=== PATIENT | female | born 1995 | race Two or more races ===

== ENCOUNTER 2020-09-14 21:27 | Emergency (ER) | payer BC ==
[2020-09-14] MEDS ORDERED: Ketorolac 60 MG/2 ML SDV IM ONE (22:34)
--- NOTE | 2020-09-14 22:35 | EDM.PDOC ---
ED HPI GENERAL MEDICAL PROBLEM - General Chief Complaint: Abdominal Pain Stated Complaint: MEDICAL Time Seen by Provider: 09/14/20 22:20 Source of Information: Reports: Patient History Limitations: Reports: No Limitations - History of Present Illness INITIAL COMMENTS - FREE TEXT/NARRATIVE: 24-year-old female who vomited several times today, and became concerned that she may have overdosed on Tylenol. She has had a persistent migraine and generalized body aches over the past several days and has been taking Tylenol on a regular basis. No fevers or chills, no diarrhea. No significant abdominal pain. No urinary symptoms. Onset: Unknown/Unsure Associated Symptoms: Reports: Loss of Appetite, Malaise, Nausea/Vomiting. 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 Musculoskeletal History: Reports: Fracture, Other (See Below) Other Musculoskeletal History: bilateral ankle fx Neurological History: Reports: Concussion, Headaches, Chronic Psychiatric History: Reports: Anxiety, Depression - Infectious Disease History Infectious Disease History: Reports: Chicken Pox, Novel Coronavirus - Past Surgical History Female Surgical History: Reports: Other (See Below) Other Female Surgeries/Procedures: 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 Denies: Fever, Chills HEENT: Denies: Throat Pain Respiratory: Denies: Shortness of Breath, Cough Cardiovascular: Denies: Chest Pain GI/Abdominal: Reports: Abdominal Pain, Nausea, Vomiting. Denies: Constipation, Diarrhea : Reports: No Symptoms Neurological: Reports: Headache ED EXAM, GI/ABD - Physical Exam Exam: See Below Exam Limited By: No Limitations General Appearance: Alert, No Apparent Distress Eyes: Bilateral: Normal Appearance Head: Atraumatic Respiratory/Chest: No Respiratory Distress, Lungs Clear Cardiovascular: Regular Rate, Rhythm GI/Abdominal Exam: Normal Bowel Sounds, Soft, Other (No focal tenderness or rebound) Neurological: Alert, Oriented Course - Vital Signs Last Recorded V/S: Last Vital Signs Temp 97.8 F 09/14/20 22:12 Pulse 101 H 09/14/20 22:12 Resp 16 09/14/20 22:12 BP 145/92 H 09/14/20 22:12 Pulse Ox 99 09/14/20 22:12 - Orders/Labs/Meds Meds: Medications Discontinued Medications Generic Name Dose Route Start Last Admin Trade Name Derrickq PRN Reason Stop Dose Admin Ketorolac Tromethamine 60 mg 09/14/20 22:34 09/14/20 22:51 Toradol IM 09/14/20 22:35 60 mg ONETIME ONE Administration - Re-Assessments/Exams Free Text/Narrative Re-Assessment/Exam: 09/14/20 22:47 Reassured her that she does not appear to be in a state of acetaminophen poisoning, its more likely mild viral syndrome. She was given 60 mg of IM Toradol for her persistent headache, and 5 doses of Zofran to use over the next 24 hours. She can return tomorrow if worsening for further work-up if needed. Departure - Departure Time of Disposition: 23:05 Disposition: Home, Self-Care 01 Clinical Impression: Nausea & vomiting Qualifiers: Vomiting type: unspecified Vomiting Intractability: non-intractable Qualified Code(s): R11.2 - Nausea with vomiting, unspecified Headache Qualifiers: Headache type: unspecified Headache chronicity pattern: acute headache Intractability: not intractable Qualified Code(s): R51.9 - Headache, unspecified - Discharge Information Instructions: Nausea and Vomiting, Adult Referrals: Preeti Schumacher CNM [Primary Care Provider] - Forms: ED Department Discharge Care Plan Goals: Rest tonight, stay hydrated and try naproxen or ibuprofen if needed tomorrow for headache or muscle pain. Return in 1 to 2 days if not improving satisfactorily. Avoid Tylenol for 24 hours. Use Zofran under your tongue every 6-8 hours if na useated. Sepsis Event Note (ED) - Evaluation Sepsis Screening Result: No Definite Risk - Focused Exam Vital Signs: Vital Signs Temp Pulse Resp BP Pulse Ox 09/14/20 22:12 97.8 F 101 H 16 145/92 H 99 09/14/20 21:43 97.8 F 101 H 16 145/92 H 99
== END 2020-09-14 23:05 | disposition home or self-care (01) ==
LOC: JP.ED 21:27
DX: R11.2 Nausea with vomiting, unspecified (principal); R51.9 Headache, unspecified; F41.9 Anxiety disorder, unspecified; F32.9 Major depressive disorder, single episode, unspecified; Z88.5 Allergy status to narcotic agent; Z79.899 Other long term (current) drug therapy
CPT/HCPCS: 96372; 99283; J1885

== ENCOUNTER 2022-04-15 04:30 | Emergency (ER) | payer OTHER, BC | END 2022-04-15 05:13 | disposition home or self-care (01) | LOC: JP.ED 04:30 | DX: S93.401A Sprain of unspecified ligament of right ankle, initial encounter (principal); F41.9 Anxiety disorder, unspecified; F32.A Depression, unspecified; Z88.5 Allergy status to narcotic agent; W22.8XXA Striking against or struck by other objects, initial encounter; Y99.0 Civilian activity done for income or pay | CPT/HCPCS: 73610-RT; 99283 ==

== ENCOUNTER 2022-10-05 20:22 | Emergency (ER) | payer BC | END 2022-10-05 21:54 | disposition home or self-care (01) | LOC: JP.ED 20:22 | DX: T18.9XXA Foreign body of alimentary tract, part unspecified, initial encounter (principal); Z88.5 Allergy status to narcotic agent | CPT/HCPCS: 74018; 99283 ==